=== PATIENT | female | born 1980 | race Caucasian/White ===

== ENCOUNTER 2017-03-03 01:23 | Emergency (ER) | payer BC, OTHER ==
--- NOTE | 2017-03-03 01:45 | ERNOTE ---
Headache ER HPI - General Presenting Symptoms: headache, "migraine" Time Seen by Provider: 03/03/17 01:42 Source: patient, family, RN notes reviewed - Immun/Allergies/Home Medications Immunizations: IMMUNIZATION HX Immunizations Up to Date Yes History of Influenza Vaccine No Hx Pneumococcal Vaccination No Allergies/Adverse Reactions: Allergies erythromycin base Adverse Reaction (Verified 03/03/17 01:36) morphine Adverse Reaction (Verified 03/03/17 01:36) Home Medications: HOME MEDICATIONS ALPRAZolam [Xanax] 0.5 mg PO DAILY PRN 03/03/17 [Last Taken Unknown] Estrogens, Conjugated [Premarin] 0.45 mg PO DAILY 03/03/17 [Last Taken Unknown] SUMAtriptan SUCCINATE [Imitrex] 100 mg PO Q2H PRN 03/03/17 [Last Taken Unknown] - History of Present Illness Narrative: Patient with complaints of a migraine headache. She states that this is on the right side, as usual, but started in her neck this time. She tried taking her home script of Sumatriptan, but she keeps vomiting and has not been able to keep anything down. She normally sees Dr. Cazares in [facility], and is usually able to take medication at home without problems. Timing of Headache: gradual Context Headache: Present: new onset Quality: Present: sharp, throbbing Severity Maximum: Present: severe Severity-Currently: Present: severe Headache frequency: Present: frequent headaches Modifying Factors - (Improves): Reports: rest Modifying Factors - (Worsens): Reports: movement, exposure to light Associated Symptoms: Reports: nausea, vomiting, neck pain/stiffness Exacerbated by:: Reports: light, noise, movement, position Review of Systems - Review of Systems Constitutional: Absent: recent illness, fever, chills EYE: Present: eye pain ENT: Absent: ear pain, sore throat Respiratory: Absent: shortness of breath, cough Cardiology: Absent: chest pain, palpitations Gastrointestinal/Abdominal: Present: nausea, vomiting. Absent: diarrhea, abdominal pain Genitourinary: Present: no symptoms reported Musculoskeletal: Present: neck pain Skin: Present: no symptoms reported Neurological: Present: headache Endocrine: Present: no symptoms reported Hematologic/Lymphatic: Present: no symptoms reported Psych: Present: no symptoms reported - Patient's Past Medical History Patient History - Medical: Migraines Patient History - Cardiac/Respiratory: No pertinent hx Patient History - Cancer: No Hx of Cancer Patient History - Surgical Procedures: Appendectomy, Hysterectomy, Hernia Repair Patient History - Other: None LMP (females 10-50): Hysterectomy - Social History Living Situations: parents Abuse History: No History of abuse Psych History: Hx of Anxiety, Hx of Depression Smoking Status: Light tobacco smoker Patient requests Smoking Cessation Consult: No Initiate information on Smoking Cessation: No Alcohol Use: rarely Drug Use: none - Immunizations Immunizations Up to Date: Yes Hx Pneumococcal Vaccination: No History of Influenza Vaccine: No Physical Exam - Physical Exam General Appearance: Present: wd/wn, alert, no apparent distress Head Exam: Present: normal inspection, no evidence of injury Eye Exam: Normal inspection: bilateral, PERRL: bilateral, EOMI: bilateral Ears, Nose, Throat: Present: normal ENT inspection, normal pharynx Neck: Present: tender lateral - right. Respiratory: Present: no respiratory distress, normal breath sounds, no accessory muscle use, chest nontender, lungs clear Cardiovascular/Chest: Present: regular rate, rhythm, no murmur Gastrointestinal/Abdominal: Present: normal bowel sounds, nontender, nondistended, soft Back Exam: Present: normal inspection, normal range of motion Extremity Exam: Present: normal inspection, non-tender, normal range of motion, no edema Neurological Exam: Present: alert, oriented, normal mood/affect, no motor/ sensory deficits Skin Exam: Present: normal color, warm/dry Lymphatic Exam: Present: no adenopathy ED Progress - Vital Signs Patient's Vital Signs:: I have reviewed the patient's vital signs. Vital Signs: Vital Signs 03/03/17 01:29 Temperature 36.9 C Pulse Rate 61 Respiratory 22 H Rate Blood Pressure 110/74 O2 Sat by Pulse 100 Oximetry - Progress/Reassessment Chief Complaint: Headache Progress Note-Subjective: 03/03/17 02:00 Benadryl 50 mg IM Compazine 10 mg IM 03/03/17 02:36 Patient still with a headache, will add Toradol 60 mg IM. 03/03/17 03:37 Patient now sleeping, will discharge home. Departure Clinical Impression: Migraine headache Qualifiers: Migraine type: without aura Status migrainosus presence: with status migrainosus Intractability: intractable Qualified Code(s): G43.011 - Migraine without aura, intractable, with status migrainosus - Departure Disposition: Home self-care Condition: Good Instructions: Recurrent Migraine Headache Referrals: Akira Cazares MD [Non Staff Physicians] - (in 5-7 days, sooner if you do not improve.)
[2017-03-03] MEDS ORDERED: PROCHLORPERAZINE EDISYLATE 5 MG/ML VIAL IM ONE (01:51)
[2017-03-03] MEDS ORDERED: diphenhydrAMINE HCL 50 MG/ML VIAL IM ONE (01:51)
[2017-03-03] MEDS ORDERED: diphenhydrAMINE HCL 50 MG/ML VIAL ONE (01:53)
[2017-03-03] MEDS ORDERED: PROCHLORPERAZINE EDISYLATE 5 MG/ML VIAL ONE (01:53)
[2017-03-03] MEDS ORDERED: KETOROLAC TROMETHAMINE 60 MG/2 ML VIAL IM ONE ×2 (02:36)
[2017-03-03 04:07] VITALS: BP 102/59
== END 2017-03-03 04:06 | disposition home or self-care (01) ==
LOC: ER 01:23
DX: G43.011 Migraine without aura, intractable, with status migrainosus (principal); F17.200 Nicotine dependence, unspecified, uncomplicated